=== PATIENT | male | born 1945 | race Caucasian/White ===

== ENCOUNTER 2020-01-15 13:04 | Inpatient (IN) ==
[2020-01-15] MEDS ORDERED: Isovue-370 500 ML BOTTLE IVP ONE (13:18)
[2020-01-15 13:42] LABS: Basophils % 0.5 %; Eosinophils # 0.1 K/mcL (0.0-0.6); Hematocrit 45.5 % (37.5-50.1); Hemoglobin 14.9 g/dL (12.9-16.9); Immature Granulocytes % 0.4 % (0-4); Lymphocytes # 2.1 K/mcL (0.6-4.6); Mean Corpuscular HGB Conc 32.7 g/dL (31.6-35.5); Mean Corpuscular Hemoglobin 29.6 pg (28.0-33.3); Mean Corpuscular Volume 90.5 fL (83.0-100.0); Mean Platelet Volume 11.3 fL (9.4-12.4); Monocytes # 0.6 K/mcL (0.0-1.3); Monocytes % 7.8 %; Neutrophils # 5.2 K/mcL (1.6-8.9); Platelet Count 187 K/mcL (140-400); Red Blood Count 5.03 M/mcL (4.19-5.50); Red Cell Distribution Width 13.6 % (11.5-14.5); Segmented Neutrophils % 64.3 %; White Blood Count 8.1 K/mcL (4.3-11.1)
[2020-01-15 13:59] LABS: BUN/Creatinine Ratio 14 (6-26); Blood Urea Nitrogen 13 mg/dL (8-23); Calcium 9.9 mg/dL (8.6-10.3); Carbon Dioxide 26 mEq/L (23-29); Chloride 103 mEq/L (98-107); Glucose 104 mg/dL (70-105); Osmolality,Calculated 284 (280-300); Potassium 3.7 mEq/L (3.5-5.1); Sodium 137 mEq/L (136-145); eGFR For African Americans > 60 (> 60); eGFR For Non-African Americans > 60 (> 60)
[2020-01-15] MEDS ORDERED: Ondansetron 4 MG/2 ML VIAL IVP PRN (17:24)
[2020-01-15] MEDS ORDERED: Naloxone 0.4 MG/ML INJ IVP PRN (17:24)
[2020-01-15] MEDS ORDERED: Ipratropium/Albuterol Neb 3 ML IH PRN (19:39)
[2020-01-15] MEDS: Doxycycline 100 MG in 0.9 % Sodium Chloride Mini Bag 100 ML IVPB SCH (23:00)
[2020-01-16 02:36] LABS: Basophils % 0.6 %; Eosinophils # 0.1 K/mcL (0.0-0.6); Eosinophils % 1.5 %; Hematocrit 40.8 % (37.5-50.1); Hemoglobin 13.6 g/dL (12.9-16.9); Immature Granulocytes % 0.3 % (0-4); Lymphocytes # 1.9 K/mcL (0.6-4.6); Lymphocytes % 29.8 %; Mean Corpuscular HGB Conc 33.3 g/dL (31.6-35.5); Mean Corpuscular Hemoglobin 30.2 pg (28.0-33.3); Mean Corpuscular Volume 90.5 fL (83.0-100.0); Mean Platelet Volume 11.1 fL (9.4-12.4); Monocytes # 0.7 K/mcL (0.0-1.3); Monocytes % 10.1 %; Neutrophils # 3.8 K/mcL (1.6-8.9); Platelet Count 161 K/mcL (140-400); Red Blood Count 4.51 M/mcL (4.19-5.50); Red Cell Distribution Width 13.3 % (11.5-14.5); Segmented Neutrophils % 57.7 %; White Blood Count 6.5 K/mcL (4.3-11.1)
[2020-01-16 02:40] LABS: INR 1.2; Prothrombin Time 13.2 Seconds (9.4-12.1)
[2020-01-16 02:55] LABS: BUN/Creatinine Ratio 16 (6-26); Blood Urea Nitrogen 15 mg/dL (8-23); Calcium 9.1 mg/dL (8.6-10.3); Carbon Dioxide 27 mEq/L (23-29); Chloride 105 mEq/L (98-107); Glucose 136 mg/dL (70-105); Osmolality,Calculated 291 (280-300); Potassium 3.8 mEq/L (3.5-5.1); Sodium 139 mEq/L (136-145); eGFR For African Americans > 60 (> 60); eGFR For Non-African Americans > 60 (> 60)
[2020-01-16] MEDS ORDERED: Lidocaine -MPF 2% 2 ML VIAL ONE (06:59)
[2020-01-16] MEDS ORDERED: Dexamethasone 4 MG/ML VIAL ONE (06:59)
[2020-01-16] MEDS ORDERED: *HR* FentaNYL (PF) 100 MCG/2 ML VIAL ONE (06:59)
[2020-01-16] MEDS ORDERED: Ondansetron 4 MG/2 ML VIAL ONE (06:59)
[2020-01-16] MEDS ORDERED: *HR* Propofol 200 MG/20 ML VIAL IVP ONE (06:59)
[2020-01-16] MEDS ORDERED: *HR* HYDROmorphone PF 0.5 MG/0.5 ML SYRINGE IVP PRN (07:32)
[2020-01-16] MEDS ORDERED: Ondansetron 4 MG/2 ML VIAL IVP ONE (07:32)
[2020-01-16] MEDS ORDERED: *HR* OxyCODONE Immed Rel 5 MG TABLET PO PRN (07:32)
[2020-01-16] MEDS ORDERED: *HR* Promethazine 25 MG/ML VIAL IVP PRN (07:32)
[2020-01-16] MEDS ORDERED: *HR* PHENYLEPHRINE 1,000 MCG/10 ML SYRINGE IVP ONE (08:36)
[2020-01-16] MEDS: MethylPREDNISolone 40 MG/ML VIAL IVP SCH ×2 (11:18→16:55)
[2020-01-16] MEDS: Doxycycline 100 MG in 0.9 % Sodium Chloride Mini Bag 100 ML IVPB SCH ×3 (11:18→23:48)
[2020-01-16 11:40] LABS: Bilirubin,Urine Negative (Negative); Blood,Urine Negative (Negative); Clarity,Urine Clear (Clear); Color,Urine Yellow (Yellow); Glucose,Urine (UA) Normal (Normal); Ketones,Urine Negative (Negative); Leukocyte Esterase,Urine Negative (Negative); Nitrite,Urine Negative (Negative); PH,Urine 6.5 pH Units (5.0-8.0); Protein,Urine Negative (Neg-Trace); Specific Gravity,Urine 1.018 (1.010-1.025); Urobilinogen,Urine Normal (Normal)
[2020-01-16 14:12] LABS: Appearance of Body Fluid Hazy (Clear); Volume of Body Fluid 21 mL
[2020-01-16 15:09] LABS: Appearance of Body Fluid Clear (Clear); Volume of Body Fluid 15 mL
[2020-01-16 15:38] LABS: Appearance of Body Fluid Cloudy (Clear); Volume of Body Fluid 15 mL
[2020-01-17] MEDS ORDERED: GI Cocktail 40 ML EACH PO ONE (01:44)
[2020-01-17] MEDS: MethylPREDNISolone 40 MG/ML VIAL IVP SCH ×2 (06:03→17:28)
[2020-01-17] MEDS: Doxycycline 100 MG in 0.9 % Sodium Chloride Mini Bag 100 ML IVPB SCH ×2 (10:19→23:35)
[2020-01-17] MEDS: Pantoprazole 40 MG VIAL IVP SCH (10:19)
[2020-01-17] MEDS: Budesonide/Formoterol 160/4.5 1 PUFF INH IH SCH (20:13)
[2020-01-18] MEDS: MethylPREDNISolone 40 MG/ML VIAL IVP SCH ×2 (06:18→06:51)
[2020-01-18 06:22] LABS: Hematocrit 38.6 % (37.5-50.1); Mean Corpuscular HGB Conc 33.7 g/dL (31.6-35.5); Mean Corpuscular Hemoglobin 30.3 pg (28.0-33.3); Mean Platelet Volume 11.6 fL (9.4-12.4); Platelet Count 171 K/mcL (140-400); Red Blood Count 4.29 M/mcL (4.19-5.50); Red Cell Distribution Width 13.5 % (11.5-14.5)
[2020-01-18 06:23] LABS: White Blood Count 19.7 K/mcL (4.3-11.1)
[2020-01-18] MEDS: Budesonide/Formoterol 160/4.5 1 PUFF INH IH SCH (08:26)
[2020-01-18] MEDS: Pantoprazole 40 MG VIAL IVP SCH (09:09)
[2020-01-18 09:20] LABS: Mycoplasma pneumoniae IgG 0.08 U/L (<=0.09)
[2020-01-18 10:15] LABS: ANA IgG by ELISA NONE DETECTED (None Detected)
[2020-01-18] MEDS ORDERED: Lidocaine -MPF 2% 2 ML VIAL ONE ×2 (10:22→10:27)
[2020-01-18] MEDS ORDERED: *HR* Propofol 200 MG/20 ML VIAL IVP ONE (10:22)
[2020-01-18] MEDS: Doxycycline 100 MG in 0.9 % Sodium Chloride Mini Bag 100 ML IVPB SCH (11:18)
[2020-01-18 11:32] VITALS: BP 148/84
[2020-01-18] MEDS ORDERED: Doxycycline 100 MG CAPSULE PO SCH (21:00)
[2020-01-19 04:58] LABS: Influenza A PCR Body Fluid NOT DETECTED; Influenza B PCR Body Fluid NOT DETECTED; RVP Body Fluid Source BAL
[2020-01-19] MEDS ORDERED: predniSONE 20 MG TABLET PO SCH (09:00)
[2020-01-19 15:18] LABS: Serine Protease-3 Antibody 0 AU/mL (0-19)
[2020-01-19 15:18] LABS: RSV PCR Body Fluid NOT DETECTED
[2020-01-19 17:52] LABS: HSV Source LUL BAL; HSV Source RLL BAL
[2020-01-22 14:00] LABS: Influenza A PCR Body Fluid NOT DETECTED; Influenza B PCR Body Fluid NOT DETECTED; RVP Body Fluid Source BAL
[2020-01-22 14:08] LABS: Influenza A PCR Body Fluid NOT DETECTED; Influenza B PCR Body Fluid NOT DETECTED; RVP Body Fluid Source BAL
[2020-01-23 09:25] LABS: RSV PCR Body Fluid NOT DETECTED
[2020-01-23 09:26] LABS: RSV PCR Body Fluid NOT DETECTED
[2020-01-23 15:01] LABS: HSV Source RML BAL
== END 2020-01-18 15:07 | disposition home or self-care (01) | DRG 204 ==
LOC: EMEROOARM 13:04 → 3ANU 13:04 → SUATTDRO 17:10 → 3ANU 17:45
PROVIDERS: ADMIT Internal Medicine; ATTEND Internal Medicine
PROC: ENDOEBX (2020-01-18 11:40)